=== PATIENT | male | born 1940 | race Caucasian/White ===

== ENCOUNTER → 2019-08-17 | Day surgery (SDC) | payer MEDICARE ==
[~2019-08-17] MED LIST: FENOFIBRATE145 MG PO; FENTANYL CITRATE/PF 100MCG/2 ML INJ ONE; LEVOTHYROXINE137 MCG PO; LISINOPRIL-HCT1 EAC1 PO; METFORMIN HCL500 MG PO; MIDAZOLAM HCL 2 MG/2 ML VIAL ONE; OR PHACO EYE KIT ONE; PRAVASTATIN SOD40 MG PO; PREOP PHACO EYE KIT ONE
[2019-08-17 14:10] VITALS: BP 107/66
--- NOTE | 2019-08-18 | Operative Report ---
DATE OF PROCEDURE: 08/17/2019 SURGEON: Raj Childress MD PREOPERATIVE DIAGNOSIS: Visually significant cataract of the right eye. POSTOPERATIVE DIAGNOSIS: Visually significant cataract of the right eye. PROCEDURE: Complicated phacoemulsification with posterior chamber intraocular lens. ANESTHESIA: MAC. COMPLICATIONS: None. LENS: Aclon SN60WF 22.5 diopter lens. DESCRIPTION OF PROCEDURE: The patient was taken to the operating room, where he had tetracaine 0.5% drops placed in the right eye. The patient's eye was prepped and draped in the usual sterile ophthalmic way. A lid speculum was placed in the eye and a sideport incision was made. A 0.2 mL of 1% lidocaine, preservative-free, was injected into the anterior chamber. Viscoelastic was placed in the anterior chamber and a keratome was used to make a temporal clear corneal incision. Due to poor dilation and history of Flomax, a Malyugin ring was used to dilate the pupil. Once this was centered, a cystome and Utrata forceps were used to create an anterior capsulorrhexis without any complications. Hydrodissection and hydrodelineation were then performed. Good fluid wave was noted. Phacoemulsification probe was placed in the eye and the nucleus was phacoemulsified using the divide and conquer technique. Irrigation/aspiration handpiece was then used to remove any residual cortical material. Viscoelastic was placed in the capsular bag and an Aclon SN60WF 22.5 diopter lens placed in the bag without any complications. The Malyugin ring was then removed and the irrigation/aspiration handpiece was used to remove any residual viscoelastic material from within the eye. Miostat was injected into the anterior chamber and the wound was checked to make sure there was no evidence of any leakage. Two drops of Vigamox were placed in the eye along with Maxitrol ointment, patch and johnson shield. The patient tolerated the procedure well and was taken to the recovery room in good condition. The patient will be seen in my office tomorrow. Raj Childress MD SES/MODL /[id number]
== END | disposition home or self-care (01) ==
LOC: OR 12:17
PROVIDERS: ATTEND Ophthalmology
DX: H25.11 Age-related nuclear cataract, right eye (principal); I10 Essential (primary) hypertension; E11.9 Type 2 diabetes mellitus without complications; E78.5 Hyperlipidemia, unspecified; E03.9 Hypothyroidism, unspecified; M54.9 Dorsalgia, unspecified; M19.90 Unspecified osteoarthritis, unspecified site; Z79.84 Long term (current) use of oral hypoglycemic drugs; Z79.82 Long term (current) use of aspirin; Z68.34 Body mass index [BMI] 34.0-34.9, adult; Z87.01 Personal history of pneumonia (recurrent); Z87.891 Personal history of nicotine dependence
CPT/HCPCS: 36415; 66982; 82948; J2250; J3010; V2632

== ENCOUNTER → 2019-08-31 | Day surgery (SDC) | payer MEDICARE ==
[2019-08-31 13:55] VITALS: BP 144/77
== END | disposition home or self-care (01) ==
LOC: OR 10:26
PROVIDERS: ATTEND Ophthalmology
DX: H25.12 Age-related nuclear cataract, left eye (principal); I10 Essential (primary) hypertension; E78.5 Hyperlipidemia, unspecified; E11.9 Type 2 diabetes mellitus without complications; E03.9 Hypothyroidism, unspecified; H91.90 Unspecified hearing loss, unspecified ear; Z79.84 Long term (current) use of oral hypoglycemic drugs; Z68.34 Body mass index [BMI] 34.0-34.9, adult
CPT/HCPCS: 36415; 66984; 82948; J2250; J3010; V2632